=== PATIENT | male | born 1975 | race Caucasian/White ===

== ENCOUNTER 2017-04-19 07:27 | Emergency (ER) | payer OTHER ==
[2017-04-19 07:31] VITALS: TEMP 98.1; BMI 31.6
[2017-04-19] MEDS ORDERED: KETOROLAC TROMETHAMINE 30 MG/1 ML VIAL IVPUSH ONE (07:53)
[2017-04-19] MEDS ORDERED: SODIUM CHLORIDE 1,000 ML IV STA ×2 (07:53→10:13)
[2017-04-19] MEDS ORDERED: KETOROLAC TROMETHAMINE 30 MG/1 ML VIAL ONE (07:54)
--- NOTE | 2017-04-19 08:11 | PDOC ---
History of Present Illness - General History Source: Patient Exam Limitations: No Limitations - History of Present Illness Initial Comments: CHIEF COMPLAINT: 42 y/o afebrile male with PMH kidney stones c/o right flank pain that woke him up at 3am. HISTORY OF PRESENT ILLNESS: He states he's been sweating and then cold on and off since then. He is now starting to feel nauseous. he denies v/d, CP, SOB, abd pain, hematuria, dysuria, decreased urinary flow. He has had stents placed before but does not remember his urologist. He has not taken anything for pain. Vital signs on arrival are within normal limits. REVIEW OF SYSTEMS: GENERAL/CONSTITUTIONAL: No fever/chills. No weakness. No weight change. HEAD, EYES, EARS, NOSE AND THROAT: No change in vision. No ear pain or discharge. No sore throat. CARDIOVASCULAR: No chest pain or shortness of breath. RESPIRATORY: No cough, wheezing, or hemoptysis. GASTROINTESTINAL: +right flank pain and nausea. No vomiting, diarrhea, constipation. GENITOURINARY: No dysuria, frequency, or change in urination. MUSCULOSKELETAL: No joint or muscle swelling or pain. No neck or back pain. SKIN: No rash or easy bruising. NEUROLOGIC: No headache, vertigo, loss of consciousness, or loss of sensation. PHYSICAL EXAM: GENERAL: The patient is awake, alert, and fully oriented, in moderate distress, pacing in the ER. HEAD: Normal with no signs of trauma. ENT: Pupils equal, round and reactive to light, extraocular movements intact, sclera anicteric, conjunctiva clear. Neck supple. LUNGS: Clear to auscultation bilaterally. Normal excursion. No respiratory distress or use of accessory muscles. CV: RRR, S1/S2, no MRG. Cap refill < 2 sec. ABDOMEN: Soft, non-distended, with TTP of right flank. No rebound, guarding, rigidity. BACK: No CVA TTP b/l. EXTREMITIES: Normal range of motion, no edema. NEUROLOGICAL: Normal speech, normal gait. CN II-XII grossly intact. PSYCH: Normal mood, normal affect. SKIN: Warm, dry, normal turgor, no rashes or lesions noted. <Kerry Doe - Last Filed: 04/19/17 11:36> <Will Jackson - Last Filed: 04/21/17 07:54> - General Chief Complaint: Pain, Acute Stated Complaint: PAIN Time Seen by Provider: 04/19/17 07:48 Past History - Past Medical History Kidney Stones: Yes Thyroid Disease: No - Psycho/Social/Smoking Cessation Hx Anxiety: No Suicidal Ideation: No Smoking History: Never smoked Have you smoked in the past 12 months: No Number of Cigarettes Smoked Daily: 0 Hx Alcohol Use: Yes (social) Drug/Substance Use Hx: No Substance Use Type: None <Kerry Doe - Last Filed: 04/19/17 11:36> <Will Jackson - Last Filed: 04/21/17 07:54> - Past Medical History Allergies/Adverse Reactions: Allergies Allergy/AdvReac Type Severity Reaction Status Date / Time No Known Allergies Allergy Verified 04/19/17 07:31 Home Medications: Ambulatory Orders Ibuprofen 800 mg PO TID #20 tablet 04/19/17 Oxycodone HCl/Acetaminophen [Percocet 5-325 mg Tablet] 1 tab PO Q6H #8 tablet MDD 6 04/19/17 Saxenda 3 mg SQ DAILY 04/19/17 Tamsulosin HCl [Flomax] 0.4 mg PO DAILY #3 cap.er.24h 04/19/17 *Physical Exam - Vital Signs Last Vital Signs Temp Pulse Resp BP Pulse Ox 98.1 F 89 20 158/88 99 04/19/17 07:28 04/19/17 07:28 04/19/17 07:28 04/19/17 07:28 04/19/17 07:28 <Kerry Doe - Last Filed: 04/19/17 11:36> - Vital Signs Last Vital Signs Temp Pulse Resp BP Pulse Ox 98.1 F 86 18 131/82 100 04/19/17 07:28 04/19/17 12:46 04/19/17 12:46 04/19/17 12:46 04/19/17 12:46 <Will Jackson - Last Filed: 04/21/17 07:54> ED Treatment Course - LABORATORY CBC & Chemistry Diagram: 04/19/17 08:00 04/19/17 08:00 <Kerry Doe - Last Filed: 04/19/17 11:36> - LABORATORY CBC & Chemistry Diagram: 04/19/17 08:00 04/19/17 08:00 - ADDITIONAL ORDERS Additional order review: 04/19/17 10:45 Urine Culture - Final Urine - Urine Clean Catch NO GROWTH OBTAINED 04/19/17 08:00 RBC 5.10 MCV 89.5 MCHC 33.2 RDW 12.7 MPV 8.3 Neutrophils % 73.7 D Lymphocytes % 16.9 D Monocytes % 8.2 Eosinophils % 0.8 Basophils % 0.4 - Medications Given in the ED: ED Medications Discontinued Medications Generic Name Dose Route Start Last Admin Trade Name Katie PRN Reason Stop Dose Admin Sodium Chloride 1,000 mls @ 1,000 mls/hr 04/19/17 07:53 04/19/17 08:14 Normal Saline - IV 04/19/17 08:52 1,000 mls/hr ASDIR STA Administration Sodium Chloride 1,000 mls @ 1,000 mls/hr 04/19/17 10:13 04/19/17 10:24 Normal Saline - IV 04/19/17 11:12 1,000 mls/hr ASDIR STA Administration Ketorolac Tromethamine 30 mg 04/19/17 07:53 04/19/17 08:15 Toradol Injection - IVPUSH 04/19/17 07:54 30 mg ONCE ONE Administration Morphine Sulfate 4 mg 04/19/17 08:47 04/19/17 08:57 Morphine Injection - IVPUSH 04/19/17 08:48 4 mg ONCE ONE Administration Tamsulosin HCl 0.4 mg 04/19/17 11:36 04/19/17 11:55 Flomax - PO 04/19/17 11:37 0.4 mg ONCE ONE Administration <Will Jackson - Last Filed: 04/21/17 07:54> Medical Decision Making - Medical Decision Making A/P: 42 y/o male with right flank pain that woke him up at 3am with hx of kidney stones. Plan is as follows: 1. Labs 2. UA/culture 3. IV toradol 4. IV fluids 5. Spiral Ct The patient is still in pain. Ordered 4mg IV morphine. Spiral CT IMPRESSION: 4mm obstructing stone in distal portion of the right ureterovesical junction with mild to moderate right renal hydronephrosis and mild hydroureter. There is also a punctate nonobstructing right renal stone measuring 1mm. Ordered 2nd liter of IV fluids Need UA to see if there is an infection Labs ok UA negative for infection. 4mm stone will most likely pass on it's own. Will give Flomax in the ER. Gave the patient all of his results. Will discharge to home with Rx for percocet, motrin and flomax. Also provided referral to Dr. Joseph and instructed him to call to day to schedule follow up appointment. Instructed him to return to the ER with any worsening or concerning symptoms. The patient verbalizes understanding of all instructions, has no further questions and is awaiting discharge. <Kerry Doe - Last Filed: 04/19/17 11:36> - Medical Decision Making The patient was seen and evaluated in conjunction with SAW Doe under my direct supervision, ancillary studies were reviewed. I agree with the plan as outlined by SAW Doe . <Will Jackson - Last Filed: 04/21/17 07:54> *DC/Admit/Observation/Transfer <Kerry Doe - Last Filed: 04/19/17 11:36> <Will Jackson - Last Filed: 04/21/17 07:54> Diagnosis at time of Disposition: Kidney stone on right side - Discharge Dispostion Disposition: HOME Condition at time of disposition: Improved - Prescriptions Prescriptions: Tamsulosin HCl [Flomax] 0.4 mg PO DAILY #3 cap.er.24h Ibuprofen 800 mg PO TID #20 tablet Oxycodone HCl/Acetaminophen [Percocet 5-325 mg Tablet] 1 tab PO Q6H #8 tablet MDD 6 - Referrals Referrals: Omar Brizuela [Primary Care Provider] - Michael Joseph MD [Staff Physician] - - Patient Instructions Printed Discharge Instructions: DI for Kidney Stones Additional Instructions: Discharge Instructions: -You have a 4mm stone on your right side that should pass on its own. -3 prescriptions have been sent to your pharmacy; please take as prescribed -Drink plenty of fluids -Call Dr. Joseph today to schedule follow up appointment for as soon as possible -Return tot he ER with any worsening or concerning symptoms. - Post Discharge Activity Work/School Note: Back to Work
[2017-04-19 08:42] LABS: BASOPHIL 0.4 % (0-2.0); EOSINOPHIL 0.8 % (0-4.5); MCH 29.8 pg (25.7-33.7); MCHC 33.2 g/dl (32.0-35.9); MEAN CELL VOLUME 89.5 fl (80-96); MEAN PLT VOLUME 8.3 fl (7.5-11.1); NEUTROPHILS 73.7 % (42.8-82.8); PLATELET COUNT 271 K/MM3 (134-434); RDW 12.7 % (11.9-15.9); WHITE BLOOD COUNT 7.2 K/mm3 (4.0-10.0)
[2017-04-19] MEDS ORDERED: morphine CARPU-JECT 4 MG/1 ML DISP.SYRIN IVPUSH ONE (08:47)
[2017-04-19] MEDS ORDERED: morphine CARPU-JECT 4 MG/1 ML DISP.SYRIN ONE (08:50)
[2017-04-19 08:59] LABS: ALBUMIN 4.3 g/dl (3.4-5.0); ALK PHOS 73 U/L (45-117); ANION GAP 8 (8-16); BILIRUBIN,TOTAL 0.9 mg/dL (0.2-1.0); CALCIUM 9.4 mg/dL (8.5-10.1); CO2 27 mmol/L (21-32); GLUCOSE,RANDOM 85 mg/dL (74-106); SGOT/AST 19 U/L (15-37); SGPT/ALT 41 U/L (12-78); TOT PROT 7.7 g/dl (6.4-8.2)
[2017-04-19 11:25] LABS: URINE APPEARANCE CLEAR; URINE BILIRUBIN NEGATIVE (NEGATIVE); URINE BLOOD 3+ (NEGATIVE); URINE COLOR LTYELLOW; URINE GLUCOSE (UA) NEGATIVE (NEGATIVE); URINE KETONE 1+ (NEGATIVE); URINE LEUK ESTERASE NEGATIVE (NEGATIVE); URINE NITRITE NEGATIVE (NEGATIVE); URINE PROTEIN NEGATIVE (NEGATIVE); URINE UROBILINOGEN NEGATIVE mg/dL (0.2-1.0)
[2017-04-19 11:36] LABS: URINE HYALINE CAST 12 /lpf; URINE MUCUS MANY; URINE RBC 33 /hpf (0-3); URINE WBC 3 /hpf (3-5)
[2017-04-19] MEDS ORDERED: TAMSULOSIN HCL 0.4 MG CAP.ER.24H (FP) PO ONE (11:36)
[2017-04-19] MEDS ORDERED: TAMSULOSIN HCL 0.4 MG CAP.ER.24H (FP) ONE (11:48)
[2017-04-19 12:48] VITALS: BP 131/82; PULSE 86
== END 2017-04-19 12:51 | disposition home or self-care (01) ==
LOC: JER 07:27
PROC: 3E0333Z Introduction of Anti-inflammatory into Peripheral Vein, Percutaneous Approach (ICD-10-PCS; principal; 2017-04-19)
PROC: 3E033NZ Introduction of Analgesics, Hypnotics, Sedatives into Peripheral Vein, Percutaneous Approach (ICD-10-PCS; 2017-04-19)
PROC: 3E0337Z Introduction of Electrolytic and Water Balance Substance into Peripheral Vein, Percutaneous Approach (ICD-10-PCS; 2017-04-19)
DX: N20.0 Calculus of kidney (principal)
CPT/HCPCS: 36415; 74176; 80053; 81003; 81015; 85025; 87086; 99283-25

== ENCOUNTER 2019-03-04 13:53 | Emergency (ER) | payer OTHER | END 2019-03-04 15:47 | disposition home or self-care (01) | LOC: FER 13:53 ==